=== PATIENT | female | born 1970 | race Caucasian/White ===

== ENCOUNTER 2019-11-08 06:41 | Day surgery (SDC) | payer OTHER ==
[~2019-11-08] VITALS: Ht 172.7 cm; Wt 67.5 kg
[~2019-11-08 06:41] MED LIST: ALBU90OI6 INH; CLIN300 PO; CYCL10 PO; DAILY VALUE1 EACH PO; HYDACE5 PO; NAPR220 PO; TRIAOI IH
--- NOTE | 2019-11-08 08:41 | NUR ---
11/08/19 0841 Ilan Shen 1 MG EPI ADDED TO EACH OF THE FIRST 3 BAGS OF LR FOR IRRIGATION.
--- NOTE | 2019-11-08 09:37 | NUR ---
11/08/19 0937 JORDON DIAZ PATIENT TO STEP DOWN VIA BED. ASSISTED TO RECLINER. SLING IN PLACE AND POLAR PACK HOOKED TO COOLER. PATIENT REPORTS SHOULDER FEELS COLD AND REPORTS NAUSEA. PATIENT MEDICATED FOR NAUSEA PER ANESTHESIA ORDERS. PT TOLERATING SMALL SIPS PO INTAKE AT THIS TIME. WILL NOTIFY FAMILY OF CONDITION
== END 2019-11-08 10:45 | disposition home or self-care (01) ==
LOC: ORSCSDS 06:41
PROVIDERS: Orthopaedic Surgery
PROC: 0RBJ4ZZ Excision of Right Shoulder Joint, Percutaneous Endoscopic Approach (ICD-10-PCS; principal; 2019-11-08 08:00)
PROC: 0LQ14ZZ Repair Right Shoulder Tendon, Percutaneous Endoscopic Approach (ICD-10-PCS; principal; 2019-11-08 08:00)
PROC: 0RNJ4ZZ Release Right Shoulder Joint, Percutaneous Endoscopic Approach (ICD-10-PCS; principal; 2019-11-08 08:00)
DX: M75.111 Incomplete rotator cuff tear or rupture of right shoulder, not specified as traumatic (principal); M75.41 Impingement syndrome of right shoulder; Z87.891 Personal history of nicotine dependence
CPT/HCPCS: C1713; J0171; J0690; J1100; J2250; J2370; J2405; J2550; J2704; J2765; J3010; J7120

== ENCOUNTER 2021-05-30 13:44 | Emergency (ER) | payer OTHER ==
[~2021-05-30] VITALS: Ht 172.7 cm; Wt 63.5 kg
[2021-05-30] MEDS ORDERED: HYDR1TAB94 PO (14:47)
== END 2021-05-30 14:54 | disposition home or self-care (01) ==
LOC: ER 13:44
DX: M79.662 Pain in left lower leg (principal); Z88.5 Allergy status to narcotic agent; Z88.1 Allergy status to other antibiotic agents; Z88.8 Allergy status to other drugs, medicaments and biological substances; Z88.6 Allergy status to analgesic agent; J45.909 Unspecified asthma, uncomplicated; Z87.891 Personal history of nicotine dependence
CPT/HCPCS: 99283; A9270